=== PATIENT | female | born 1995 | race Two or more races ===

== ENCOUNTER 2019-09-27 11:38 | Emergency (ER) | payer MEDICAID ==
[~2019-09-27] VITALS: Ht 172.7 cm; Wt 73.0 kg
[2019-09-27 11:41] VITALS: BP 134/90
[2019-09-27] MEDS ORDERED: KETOROLAC 60MG/2ML VIAL IM ONE (12:00)
== END 2019-09-27 16:13 | disposition home or self-care (01) ==
LOC: ER 11:38
DX: S33.5XXA Sprain of ligaments of lumbar spine, initial encounter (principal); V49.59XA Passenger injured in collision with other motor vehicles in traffic accident, initial encounter; Y93.89 Activity, other specified; Y92.488 Other paved roadways as the place of occurrence of the external cause
CPT/HCPCS: 72100; 81025; 96372; 99283; J1885